=== PATIENT | male | born 1985 | race Hispanic/Latino ===

== ENCOUNTER 2017-05-23 03:19 | Emergency (ER) | payer BC ==
[2017-05-23 03:20] VITALS: BMI 23.0
[2017-05-23] MEDS ORDERED: TDAP Vaccine 0.5 mL Syr IM ONE (04:02)
[2017-05-23] MEDS ORDERED: Tetracaine 0.5% Ophth 2 ML BOTTLE OS STA (04:02)
[2017-05-23 04:03] VITALS: BP 141/99; PULSE 131; RESP 20; TEMP 98.6; O2SAT 97
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
[2017-05-23] MEDS ORDERED: Sodium Chloride 0.9% 1,000 ML IV STA (04:09)
[2017-05-23] MEDS ORDERED: Lidocaine 1%/Epinephrine 1:100000 30 ml vial IJ STA (04:38)
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
== END 2017-05-23 05:10 | disposition home or self-care (01) ==
LOC: ED 03:19
DX: S01.01XA Laceration without foreign body of scalp, initial encounter (principal); Y04.0XXA Assault by unarmed brawl or fight, initial encounter; Y92.89 Other specified places as the place of occurrence of the external cause; Z23 Encounter for immunization
CPT/HCPCS: 12002; 70450; 90471; 90715; 96360; 99283; J7040